=== PATIENT | male | born 1955 | race Caucasian/White ===

== ENCOUNTER 2016-11-03 08:11 | Day surgery (SDC) | payer OTHER ==
[~2016-11-03] VITALS: Ht 172.7 cm; Wt 86.2 kg
[2016-11-03] MEDS ORDERED: ZOCOR20 MG PO (09:10)
[2016-11-03] MEDS ORDERED: BUPIVACAINE-MPF/EPI 0.25% 30 ML VIAL INJ ONE (10:25)
[2016-11-03] MEDS ORDERED: LIDOCAINE 1% 50 ML ONE (10:25)
[2016-11-03] MEDS ORDERED: SEVOFLURANE 250 ML BTL INH ONE (10:32)
[2016-11-03] MEDS ORDERED: PROPOFOL 200 MG/20 ML VIAL IV ONE (10:32)
[2016-11-03] MEDS ORDERED: ONDANSETRON 4 MG/2 ML VIAL IVP ONE (10:32)
[2016-11-03] MEDS ORDERED: fentaNYL 0.05 MG/ML VIAL ONE (10:42)
[2016-11-03] MEDS ORDERED: MORPHINE SULFATE 4 MG/ML SYR ONE ×2 (10:42→11:47)
[2016-11-03] MEDS ORDERED: MIDAZOLAM 2 MG/2 ML VIAL ONE (10:42)
[2016-11-03] MEDS ORDERED: METOCLOPRAMIDE 10 MG/2 ML INJ VIAL IVP PRN (11:15)
[2016-11-03] MEDS ORDERED: MORPHINE SULFATE 4 MG/ML SYR IVP PRN ×2 (11:15)
[2016-11-03] MEDS ORDERED: MORPHINE SULFATE 2 MG/ML SYR IVP PRN ×2 (11:15→12:05)
[2016-11-03] MEDS ORDERED: MIDAZOLAM 2 MG/2 ML VIAL IV ONE (11:15)
[2016-11-03] MEDS ORDERED: ONDANSETRON 4 MG/2 ML VIAL IV PRN (12:05)
[2016-11-03] MEDS ORDERED: HYDROmorphone 1 MG/ML AMP IVP PRN (12:05)
[2016-11-03] MEDS ORDERED: HYDROcodone/APAP 5/325 MG 1 TAB TAB PO PRN (12:05)
[2016-11-03] MEDS ORDERED: MORPHINE SULFATE 4 MG/ML SYR IV PRN (12:05)
== END 2016-11-03 14:20 | disposition home or self-care (01) ==
LOC: MDS 08:11 → MMU 08:12 → MDS 14:20
PROVIDERS: ATTEND Surgery
DX: D17.1 Benign lipomatous neoplasm of skin and subcutaneous tissue of trunk (principal); E78.5 Hyperlipidemia, unspecified; Z87.891 Personal history of nicotine dependence
CPT/HCPCS: 21931; 71010; 93005; J0690; J2001; J2250; J2270; J2405; J2704; J3010; J3490; J7060; J7120